=== PATIENT | female | born 1955 | race Caucasian/White ===

== ENCOUNTER 2020-01-25 14:47 | Day surgery (SDC) | payer MEDICAID, MEDICARE ==
[2020-01-25] VITALS (8 sets, daily range): BP systolic 115–168; BP diastolic 68–91
[~2020-01-25] VITALS: Ht 165.1 cm; Wt 54.5 kg
[~2020-01-25 14:47] MED LIST: LIDOcaine Viscous 15ml cup ONE; MIDAZolam 5mg/5ml vial ONE; fentaNYL/PF 50MCG/1 ML 2ML syringe ONE; glucagon, human recombinant 1mg kit ONE; iohexol 300 MG/1 ML 50ml polymer ONE
[2020-01-25] MEDS ORDERED: SIMV-45 PO (15:38)
[2020-01-25] MEDS ORDERED: ASPI-611 PO (15:42)
[2020-01-25] MEDS ORDERED: [UNRECOGNIZED DRUG - REMARK] SQ (15:42)
[2020-01-25] MEDS ORDERED: QUET200T PO (15:44)
[2020-01-25] MEDS ORDERED: CLON-527 PO (15:46)
[2020-01-25] MEDS ORDERED: CHOL500050 PO (15:47)
[2020-01-25] MEDS ORDERED: MAGN250T2 PO (15:47)
[2020-01-25] MEDS ORDERED: ZINC50TA67 PO (15:48)
[2020-01-25] MEDS ORDERED: WOMENS MULTIVITAMIN PO (15:49)
[2020-01-25] MEDS ORDERED: levoFLOXACIN-Levaquin 500mg/D5 100 ML IV ONE (16:36)
[2020-01-25] MEDS ORDERED: ondansetron/PF 4mg/2ml inj ONE (18:18)
== END 2020-01-25 19:10 | disposition home or self-care (01) ==
LOC: GI LAB 14:47
PROVIDERS: ATTEND Internal Medicine Gastroenterology
DX: R17 Unspecified jaundice (principal); K83.1 Obstruction of bile duct; C25.0 Malignant neoplasm of head of pancreas
CPT/HCPCS: 43274; 99153; C1769; G0500; J1610; J1956; J2250; J2405; J3010; J7040; Q9967; 43262; 99152; A4620

== ENCOUNTER 2020-05-28 06:18 | Day surgery (SDC) | payer MEDICARE, MEDICAID ==
[~2020-05-28] VITALS: Ht 157.5 cm; Wt 45.0 kg
[2020-05-28] VITALS (8 sets, daily range): BP systolic 107–133; BP diastolic 65–73
[~2020-05-28 06:18] MED LIST changes: +ASPI-611 PO; +CHOL500050 PO; +CLON-527 PO; -LIDOcaine Viscous 15ml cup ONE; +MAGN250T2 PO; -MIDAZolam 5mg/5ml vial ONE; +QUET200T PO; +SIMV-45 PO; +WOMENS MULTIVITAMIN PO; +ZINC50TA67 PO; +[UNRECOGNIZED DRUG - REMARK] SQ; -fentaNYL/PF 50MCG/1 ML 2ML syringe ONE; -glucagon, human recombinant 1mg kit ONE; -iohexol 300 MG/1 ML 50ml polymer ONE
[2020-05-28] MEDS ORDERED: diphenhydrAMINE 50 mg/ml inj ONE (06:29)
[2020-05-28] MEDS ORDERED: fentaNYL/PF 50MCG/1 ML 2ML syringe ONE (06:29)
[2020-05-28] MEDS ORDERED: MIDAZolam 5mg/5ml vial ONE (06:29)
[2020-05-28] MEDS ORDERED: iohexol 300 MG/1 ML 50ml polymer ONE (06:30)
[2020-05-28] MEDS ORDERED: glucagon, human recombinant 1mg kit ONE (06:30)
[2020-05-28] MEDS ORDERED: levoFLOXACIN-Levaquin 500mg/D5 100 ML IV ONE (06:30)
[2020-05-28] MEDS ORDERED: LIDOcaine Viscous 15ml cup ONE (06:30)
[2020-05-28] MEDS ORDERED: CLON0.5T54 PO (06:43)
[2020-05-28] MEDS ORDERED: MORP15TA PO (06:43)
[2020-05-28] MEDS ORDERED: QUET100T33 PO (06:44)
[2020-05-28] MEDS ORDERED: INSU300I3 (06:45)
[2020-05-28] MEDS ORDERED: SIMV40TA PO (06:45)
[2020-05-28] MEDS ORDERED: INSU300I (06:46)
[2020-05-28] MEDS ORDERED: DULA0.75 (06:47)
== END 2020-05-28 08:35 | disposition home or self-care (01) ==
LOC: GI LAB 06:18
PROVIDERS: ATTEND Internal Medicine Gastroenterology
DX: K83.1 Obstruction of bile duct (principal); E11.9 Type 2 diabetes mellitus without complications; E78.5 Hyperlipidemia, unspecified; Z85.07 Personal history of malignant neoplasm of pancreas; Z79.899 Other long term (current) drug therapy; Z79.84 Long term (current) use of oral hypoglycemic drugs
CPT/HCPCS: 43276; 74328; C1769; C1773; G0500; J1200; J1610; J1956; J2250; J3010; J7040; Q9967; 99152; 99153; A4620